=== PATIENT | male | born 1990 | race Caucasian/White ===

== ENCOUNTER 2017-04-11 12:27 | Emergency (ER) | payer BC ==
[2017-04-11 12:37] VITALS: BP 123/81
[2017-04-11] MEDS ORDERED: Acetaminophen/HYDROcodone 325-5 MG Tab PO ONE (12:49)
--- NOTE | 2017-04-11 13:11 | EDM.PDOC ---
ED HPI GENERAL MEDICAL PROBLEM - General Chief Complaint: Lower Extremity Injury/Pain Stated Complaint: L KNEE INJURY Time Seen by Provider: 04/11/17 12:36 Source of Information: Reports: Patient, RN Notes Reviewed History Limitations: Reports: No Limitations - History of Present Illness INITIAL COMMENTS - FREE TEXT/NARRATIVE: The patient states that he was running earlier this morning, when he slipped, causing his knee to go out laterally. He then fell, but did not further injure his left knee. He presents with pain primarily to the lateral and medial aspects of his left knee, radiating down his left leg. The pain is made worse with movement, although he has pain even with keeping his knee still. No prior left knee injury. The patient has an abrasion to his anterior right knee, but is otherwise uninjured. Left Knee Pain Score (Numeric/FACES): 10 - Related Data Allergies Allergy/AdvReac Type Severity Reaction Status Date / Time No Known Allergies Allergy Verified 04/11/17 12:37 Home Meds: Home Meds Escitalopram [Lexapro] 10 mg PO DAILY 04/11/17 [History] Ranitidine [Zantac] 150 mg PO DAILY 04/11/17 [History] Past Medical History Psychiatric History: Reports: Anxiety - Past Surgical History HEENT Surgical History: Reports: Tonsillectomy GI Surgical History: Reports: EGD Social & Family History - Family History Family Medical History: Noncontributory Endocrine/Metabolic: Reports: None - Tobacco Use Tobacco Use Within Last Twelve Months: Smokeless Tobacco (Chews) Years of Tobacco use: 4 Packs/Tins Daily: 0.2 - Caffeine Use Caffeine Use: Reports: None - Alcohol Use Alcohol Use History: Yes Days Per Week of Alcohol Use: 4 Number of Drinks Per Day: 2 Total Drinks Per Week: 8 Alcohol Use Frequency: Socially - Recreational Drug Use Recreational Drug Use: No - Living Situation & Occupation Living situation: Reports: Single Occupation: Employed ([employer]) Review of Systems - Review of Systems Review Of Systems: See Below Constitutional: Reports: No Symptoms Eyes: Reports: No Symptoms Ears: Reports: No Symptoms Nose: Reports: No Symptoms Mouth/Throat: Reports: No Symptoms Respiratory: Reports: No Symptoms Cardiovascular: Reports: No Symptoms GI/Abdominal: Reports: No Symptoms Genitourinary: Reports: No Symptoms Musculoskeletal: Reports: No Symptoms Skin: Reports: No Symptoms Neurological: Reports: No Symptoms Psychiatric: Reports: No Symptoms ED EXAM, GENERAL - Physical Exam Exam: See Below Exam Limited By: No Limitations General Appearance: Alert, WD/WN, Mild Distress Extremities: Other (Mild swelling to the left knee, when compared to the right, but no other visible abnormalities, such as erythema, ecchymosis, or abrasion. No visible effusion. The patient is able to extend the knee to approximately 20 , and flex the knee to approximately 90, citing pain as the limiting factor for both reductions in ROM. No locking or crepitus. There is considerable tenderness to palpation of the lateral, medial, and posterior knee. No tenderness to palpation along the quadriceps or patellar tendons, or patella. Pain is induced in the MEDIAL knee with stressing the LATERAL collateral ligament, and pain is induced in the LATERAL knee with stressing the MEDIAL collateral ligament. Anterior and posterior drawer signs are negative. Neurovascular status of the entire left lower extremity is intact.) Neurological: Alert Psychiatric: Normal Affect Course - Vital Signs Last Recorded V/S: Last Vital Signs Temp 36.6 C 04/11/17 12:32 Pulse 101 H 04/11/17 12:32 Resp 18 04/11/17 12:32 BP 123/81 04/11/17 12:32 Pulse Ox 98 04/11/17 12:32 - Orders/Labs/Meds Orders: Active Orders 24 hr Category Date Time Status DME for Discharge [COMM] Stat Oth 04/11/17 13:42 Ordered Meds: Medications Discontinued Medications Generic Name Dose Route Start Last Admin Trade Name Freq PRN Reason Stop Dose Admin Hydrocodone Bitart/Acetaminophen 2 tab 04/11/17 12:49 04/11/17 13:24 Anabel 325-5 Mg PO 04/11/17 12:50 2 tab ONETIME ONE Administration - Radiology Interpretation Free Text/Narrative:: 4-view radiograph of the left knee are read by Dr. Dejesus as "No abnormality is identified on 4-view left knee exam." - Re-Assessments/Exams Free Text/Narrative Re-Assessment/Exam: 04/11/17 14:29 X-ray results discussed with the patient. The patient appears to have a left knee strain, but they stopped his examination, I do not suspect a significant medial or lateral collateral ligament injury. I have ordered a knee immobilizer , and will refer him to Dr. Clark. Departure - Departure Time of Disposition: 14:30 Disposition: Home, Self-Care 01 Condition: Fair Clinical Impression: Internal derangement of left knee - Discharge Information Referrals: Ari Peters MD [Physician] - Forms: ED Department Discharge Additional Instructions: You were seen in the emergency room after falling and injuring your left knee. Workup in the ER included x-rays of your left knee. X-rays were read by the radiologist as normal. No broken bones, and no evidence of an effusion. You have been placed into a knee immobilizer. Apply it each morning and take it off at bedtime. It can go on over your clothes. Be careful going up and down stairs while wearing the knee immobilizer. Take [id number] ibuprofen 2-3 tablets (400-600 mg) every 8 hours, with food, as needed for discomfort. Follow-up with the orthopedic surgeon Dr. Clark at the next available appointment. If any other problems, please do not hesitate to return to the ER. - My Orders Last 24 Hours: My Active Orders 04/11/17 13:42 DME for Discharge [COMM] Stat - Assessment/Plan Last 24 Hours: My Active Orders 04/11/17 13:42 DME for Discharge [COMM] Stat
--- NOTE | 2017-04-11 13:33 | CR ---
Left knee: Four views of the left knee were obtained. Medial and lateral joint spaces are maintained in height. No joint effusion is seen. No fracture or other abnormality is seen. Impression: 1. No abnormality is identified on four-view left knee exam. Diagnostic code #1
== END 2017-04-11 15:00 | disposition home or self-care (01) ==
LOC: JD.ED 12:27
DX: M23.92 Unspecified internal derangement of left knee (principal); F41.9 Anxiety disorder, unspecified; Z98.890 Other specified postprocedural states; F17.290 Nicotine dependence, other tobacco product, uncomplicated; Z79.899 Other long term (current) drug therapy; W01.0XXA Fall on same level from slipping, tripping and stumbling without subsequent striking against object, initial encounter
CPT/HCPCS: 73564; 99284; A9270; 99283